=== PATIENT | male | born 1965 | race Caucasian/White ===

== ENCOUNTER 2020-07-20 07:20 | Day surgery (SDC) | payer OTHER ==
[~2020-07-20] VITALS: Ht 182.9 cm; Wt 88.6 kg
[~2020-07-20 07:20] MED LIST: ALPR.5 PO; ATEN25 PO; Lisinopril10 MG PO; Multiple Vitam1 EAC1 PO; Symbyax 3-25 M1 EACH PO; ZOLP10 PO
[2020-07-20] MEDS ORDERED: IBUP800 (07:34)
[2020-07-20] MEDS ORDERED: Lisinopril2.5 MG (07:34)
== END 2020-07-20 09:14 | disposition home or self-care (01) ==
LOC: ORSCSDS 07:20
PROVIDERS: Surgery
PROC: 0DJD8ZZ Inspection of Lower Intestinal Tract, Via Natural or Artificial Opening Endoscopic (ICD-10-PCS; principal; 2020-07-20 08:30)
DX: Z12.11 Encounter for screening for malignant neoplasm of colon (principal); Z86.010 Personal history of colon polyps; F41.8 Other specified anxiety disorders; I10 Essential (primary) hypertension; E78.5 Hyperlipidemia, unspecified; Z79.899 Other long term (current) drug therapy
CPT/HCPCS: J0461; J2405; J2704; J7120

== ENCOUNTER → 2021-09-07 | Outpatient (CLI) | payer OTHER ==
[~2021-09-07] MED LIST changes: +IBUP800; +Lisinopril2.5 MG
== END ==
LOC: LAB SHORT 07:40
DX: I10 Essential (primary) hypertension (principal)
CPT/HCPCS: 82043